=== PATIENT | male | born 1990 | race Caucasian/White ===

== ENCOUNTER 2019-04-08 11:01 | Emergency (ER) | payer OTHER ==
--- NOTE | 2019-04-08 12:16 | UC ---
Knee Pain HPI - HPI Summary HPI Summary: 28-year-old transmale presents with complaints of right knee pain. States he was at work, went to turn and foot remained planted causing a twisting injury to the knee. States he was able to walk and bear weight on the knee immediately after the injury but with a lot of pain. Pain worsens with any type of movement. Denies numbness or tingling. - History of Current Complaint Chief Complaint: UCLowerExtremity Stated Complaint: RIGHT KNEE INJURY Time Seen by Provider: 04/08/19 11:58 Hx Obtained From: Patient Pain Intensity: 4 - Allergies/Home Medications Allergies/Adverse Reactions: Allergies Allergy/AdvReac Type Severity Reaction Status Date / Time No Known Allergies Allergy Verified 04/08/19 11:23 Home Medications: Home Medications Duloxetine HCl [Cymbalta] 30 mg PO BEDTIME 04/08/19 [History Confirmed 04/08/19] Testosterone Cypionate [Depo-Testosterone] 0.4 mg IM 04/08/19 [History] lamoTRIgine TAB(*) [LaMICtal TAB(*)] 200 mg PO BEDTIME 04/08/19 [History Confirmed 04/08/19] PMH/Surg Hx/FS Hx/Imm Hx Previously Healthy: Yes Psychological History: Depression - Surgical History Surgical History: None - Family History Known Family History: Positive: Non-Contributory - Social History Lives: With Family Alcohol Use: None Substance Use Type: None Smoking Status (MU): Never Smoked Tobacco Review of Systems All Other Systems Reviewed And Are Negative: Yes Constitutional: Positive: Negative Skin: Negative: Bruising Respiratory: Positive: Negative Cardiovascular: Positive: Negative Gastrointestinal: Positive: Negative Genitourinary: Positive: Negative Motor: Negative: Weakness Neurovascular: Negative: Decreased Sensation Musculoskeletal: Positive: Other: - See HPI Neurological: Positive: Negative Physical Exam - Summary Physical Exam Summary: GENERAL APPEARANCE: Well developed, well nourished, alert and cooperative, and appears to be in no acute distress. CARDIAC: Normal S1 and S2. No S3, S4 or murmurs. Rhythm is regular. There is no peripheral edema, cyanosis or pallor. Extremities are warm and well perfused. Capillary refill is less than 2 seconds. Peripheral pulses intact. LUNGS: Clear to auscultation without rales, rhonchi, wheezing or diminished breath sounds. ABDOMEN: Positive bowel sounds. Soft, nondistended, nontender. No guarding or rebound. No masses or hepatosplenomegally. MUSKULOSKELETAL:Normal muscular development. Tenderness to the superior joint line without gross deformity or ecchymosis. No joint laxity. Circulation and sensation intact. SKIN: Skin normal color, texture and turgor with no lesions or eruptions. Triage Information Reviewed: Yes Vital Signs: Initial Vital Signs Temp 98.8 F 04/08/19 11:19 Pulse 73 04/08/19 11:19 Resp 18 04/08/19 11:19 BP 112/66 04/08/19 11:19 Pulse Ox 100 04/08/19 11:19 Vital Signs Reviewed: Yes Diagnostics - Radiology No standard instances Radiology Interpretation Completed By: Radiologist Summary of Radiographic Findings: Order Information: KNEE RIGHT 4+ VWS. Accession Number: [id number]. CPT: 49307. Indication: Right knee pain. 4 views of the right knee demonstrates suprapatellar effusion. There is no fracture or dislocation. No other bone or joint abnormality is identified. IMPRESSION: Suprapatellar effusion. No fracture of the right knee is noted. Knee Pain Course/Dx - Course Course Of Treatment: 28-year-old transmale presents with complaints of right knee pain. States he was at work, went to turn and foot remained planted causing a twisting injury to the knee. States he was able to walk and bear weight on the knee immediately after the injury but with a lot of pain. Pain worsens with any type of movement. Denies numbness or tingling. Afebrile. VSS. Patient had tenderness to the superior joint line without gross deformity or ecchymosis. No joint laxity. Circulation and sensation intact. X-ray showed no acute fracture or dislocation. Patient was placed in a knee immobilizer by the RN. Circulation and sensation intact pre- and post-application. He is to use crutches to weight bear as tolerated. Recommending conservative treatment for a right knee sprain including OTC analgesics and RICE. He is to follow up with orthopedic surgery within 5 days for further evaluation and treatment. Anticipatory guidance and warning symptoms reviewed with patient. Verbalizes understanding and agrees with POC. - Differential Dx/Diagnosis Differential Diagnosis/HQI/PQRI: Dislocation, Fracture (Closed), Internal Derangement Of Knee, Sprain Provider Diagnosis: Right knee sprain Discharge - Sign-Out/Discharge Documenting (check all that apply): Patient Departure All imaging exams completed and their final reports reviewed: Yes - Discharge Plan Condition: Stable Disposition: HOME Patient Education Materials: Knee Sprain (ED), Crutch Instructions (ED), Knee Immobilizer (ED) Forms: *Work Release Referrals: Domitila Valerio MD [Primary Care Provider] - Baldomero Bender MD [Medical Doctor] - 5 Days Additional Instructions: The x-ray performed in the clinic today showed no evidence of a fracture. I suspect that you have a knee sprain. Rest the leg as much as possible. Wear the knee immobilizer that was applied in the clinic today. You may remove to sleep and shower but should wear at all other times. Use the crutches provided. You may bear weight as tolerated. Apply ice to the affected area for 15-20 minutes at least 4 times a day to help with the pain and swelling. Elevate the leg to help reduce swelling. Take acetaminophen (Tylenol) or ibuprofen (Advil, Motrin) according to directions as needed for pain. Follow up with orthopedic surgery in 5 days for further evaluation and treatment. Call for appointment. Seek immediate medical attention if you have severe pain not managed with pain medication, you are unable to walk or bear any weight, develop numbness or tingling in the leg, foot, or toes, or have any worsening of symptoms. - Billing Disposition and Condition Condition: STABLE Disposition: Home - Attestation Statements Provider Attestation: I was available for consult. This patient was seen by the [facility]. The patient was not presented to, seen by, or examined by me. -Eusebio
[2019-04-08] MEDS ORDERED: Naproxen TAB* 250 MG PO ONE (12:29)
[2019-04-08 13:39] VITALS: BP 110/70
== END 2019-04-08 13:40 | disposition home or self-care (01) ==
LOC: UCEAST 11:01
DX: S83.91XA Sprain of unspecified site of right knee, initial encounter (principal); X50.9XXA Other and unspecified overexertion or strenuous movements or postures, initial encounter; Y92.89 Other specified places as the place of occurrence of the external cause; F32.9 Major depressive disorder, single episode, unspecified
CPT/HCPCS: 99203; A9270-GY; G0463